=== PATIENT | male | born 1965 | race Caucasian/White ===

== ENCOUNTER 2018-11-15 07:52 | Day surgery (SDC) | payer OTHER ==
[2018-11-15] MEDS ORDERED: LACTATED RINGER'S 1,000 ML IV (10:00)
[2018-11-15] MEDS ORDERED: FENTAnyl 50 MCG/ML VIAL (10:55)
[2018-11-15] MEDS ORDERED: MIDAZOLAM 1 MG/ML 2 ML INJ (10:55)
[2018-11-15] MEDS: LIDOCAINE 1%/EPI 30 ML INJ (11:13)
[2018-11-15] MEDS: GELATIN SIZE 100 SPONGE (11:13)
[2018-11-15] MEDS: EPINEPHrine 1 MG INJ (11:13)
[2018-11-15] MEDS ORDERED: ONDANSETRON 4 MG INJ ×2 (11:45→12:06)
[2018-11-15] MEDS ORDERED: LIDOCAINE 2% (SDV) 5 ML INJ (11:45)
[2018-11-15] MEDS ORDERED: PROPOFOL 20 ML (11:45)
[2018-11-15] MEDS ORDERED: MEPERIDINE 25 MG INJ (12:06)
[2018-11-15] MEDS: MEPERIDINE 25 MG INJ IV (12:21)
[2018-11-15] MEDS: ONDANSETRON 4 MG INJ IV (12:22)
[2018-11-15] MEDS ORDERED: FENTAnyl 50 MCG/ML VIAL IV (12:30)
[2018-11-15] MEDS ORDERED: METOCLOPRAMIDE 10 MG INJ IV (12:30)
[2018-11-15] MEDS ORDERED: HYDROmorphONE 1 MG/5 ML IV SYRINGE IV ×2 (12:30)
[2018-11-15] MEDS ORDERED: DIPHENHYDRAMINE 50 MG INJ IV (12:30)
[2018-11-15] MEDS ORDERED: HYDROCODONE/APAP (7.5/325) TAB PO (13:00)
== END 2018-11-15 13:30 | disposition home or self-care (01) ==
LOC: SDS 07:52
DX: H66.91 Otitis media, unspecified, right ear (principal)
CPT/HCPCS: 69436; 93005